=== PATIENT | female | born 1945 | race Caucasian/White ===

== ENCOUNTER → 2017-02-17 | Outpatient (CLI) | payer MEDICARE, OTHER | END | disposition home or self-care (01) | LOC: SURG 13:11 | PROVIDERS: ATTEND Anesthesiology | DX: M54.12 Radiculopathy, cervical region (principal); J44.9 Chronic obstructive pulmonary disease, unspecified; K44.9 Diaphragmatic hernia without obstruction or gangrene; R62.7 Adult failure to thrive | CPT/HCPCS: 99213 ==

== ENCOUNTER → 2017-03-02 | Outpatient (CLI) | payer MEDICARE, OTHER ==
[~2017-03-02] MED LIST: BUPIVACAINE MPF 0.25% 10 ML VIAL. ONE; DEXAMETHASONE SOD PHOS 4 MG/ML VIAL ONE; IOHEXOL 300 MG/ML 50 ML VIAL. ONE; LIDOCAINE 1% PF 30 ML VIAL. ONE
== END | disposition home or self-care (01) ==
LOC: SURG 13:24
PROVIDERS: ATTEND Anesthesiology
DX: M47.812 Spondylosis without myelopathy or radiculopathy, cervical region (principal); M19.91 Primary osteoarthritis, unspecified site; D64.9 Anemia, unspecified; J44.9 Chronic obstructive pulmonary disease, unspecified
CPT/HCPCS: 64490; 64491; J1100; J2001; J3490; Q9967

== ENCOUNTER → 2017-04-06 | Outpatient (CLI) | payer MEDICARE, OTHER | END | disposition home or self-care (01) | LOC: SURG 13:22 | PROVIDERS: ATTEND Anesthesiology | DX: M47.812 Spondylosis without myelopathy or radiculopathy, cervical region (principal); M79.1 Myalgia; J44.9 Chronic obstructive pulmonary disease, unspecified; F17.200 Nicotine dependence, unspecified, uncomplicated | CPT/HCPCS: 99214 ==

== ENCOUNTER → 2017-06-01 | Outpatient (CLI) | payer MEDICARE, OTHER ==
[~2017-06-01] MED LIST changes: +ALBU0.63 NEB; +ALBU18HF IH; +ASPI81TA44 PO; +BUPIVACAINE MPF 0.25% 10 ML VIAL. IJ ONE; +BUPR-192 PO; +CYCL1DRO EACHEYE; +DEXAMETHASONE SOD PHOS 4 MG/ML VIAL IV ONE; +ESOM40CA PO; +FLUT16SP21 NS; +GUAI600T47 PO; +IBUP400T18 PO; -IOHEXOL 300 MG/ML 50 ML VIAL. ONE; +IPRA3AMP NEB; +IV RINGERS SOLUTION,LACTATED 1,000 ML IV SCH; +LEVO500T59 PO; +LIDOCAINE 1% PF 30 ML VIAL. INJ ONE; +LORA10TA3 PO; +MIDAZOLAM HCL PF 2 MG/2 ML VIAL. ONE; +MONT10TA9 PO; +MULT1TAB52 PO; +PANT40TA5 PO; +PARO20TA99 PO; +PRED-220 PO; +TIOT18CA IH; +TRAM50TA PO
[2017-06-01 16:11] VITALS: BP 106/56
== END | disposition home or self-care (01) ==
LOC: SURG 14:01
PROVIDERS: ATTEND Anesthesiology
DX: M47.812 Spondylosis without myelopathy or radiculopathy, cervical region (principal); Z88.0 Allergy status to penicillin
CPT/HCPCS: 64633; 64634; J1100; J2001; J2250; J3010; J3490; J7120

== ENCOUNTER → 2017-06-22 | Outpatient (CLI) | payer MEDICARE, OTHER ==
[2017-06-01 16:11] VITALS: BP 106/56
[~2017-06-22] MED LIST changes: -BUPIVACAINE MPF 0.25% 10 ML VIAL. IJ ONE; -BUPIVACAINE MPF 0.25% 10 ML VIAL. ONE; -DEXAMETHASONE SOD PHOS 4 MG/ML VIAL IV ONE; -DEXAMETHASONE SOD PHOS 4 MG/ML VIAL ONE; -IV RINGERS SOLUTION,LACTATED 1,000 ML IV SCH; -LIDOCAINE 1% PF 30 ML VIAL. INJ ONE; -LIDOCAINE 1% PF 30 ML VIAL. ONE; -MIDAZOLAM HCL PF 2 MG/2 ML VIAL. ONE
== END | disposition home or self-care (01) ==
LOC: SURG 14:20
PROVIDERS: ATTEND Anesthesiology
DX: M47.812 Spondylosis without myelopathy or radiculopathy, cervical region (principal); G89.4 Chronic pain syndrome
CPT/HCPCS: 99204

== ENCOUNTER → 2018-05-10 | Outpatient (CLI) | payer MEDICARE, OTHER ==
[2017-06-01 16:11] VITALS: BP 106/56
[~2018-05-10] MED LIST changes: -ALBU18HF IH; +ALBU2.5V8 IH; -ASPI81TA44 PO; +ASPI81TA59 PO; +BUPIVACAINE MPF 0.25% 30 ML VIAL. ONE; +IOHEXOL 300 MG/ML 50 ML VIAL. ONE; -IPRA3AMP NEB; +IPRA3AMP29 NEB; +LIDOCAINE 1% PF 30 ML VIAL. ONE
== END | disposition home or self-care (01) ==
LOC: SURG 08:23
PROVIDERS: ATTEND Anesthesiology
DX: M47.812 Spondylosis without myelopathy or radiculopathy, cervical region (principal); J44.9 Chronic obstructive pulmonary disease, unspecified; I25.2 Old myocardial infarction; Z88.0 Allergy status to penicillin; M19.90 Unspecified osteoarthritis, unspecified site; R62.7 Adult failure to thrive; G47.30 Sleep apnea, unspecified; Z79.82 Long term (current) use of aspirin; Z79.899 Other long term (current) drug therapy
CPT/HCPCS: 64490; 64491; J2001; J3490; Q9967